=== PATIENT | male | born 1955 | race Caucasian/White ===

== ENCOUNTER 2017-02-12 09:53 | Emergency (ER) | payer BLACK LUNG, OTHER ==
[~2017-02-12 09:53] MED LIST: ASPIRIN81 MG PO; FISH OIL 1,0001 EAC1 PO; FISH OIL300 MG PO; LEVAQUIN500 MG PO; LIPITOR80 MG PO; MEDROL DOSEPAK 24 MG PO; MEDROL4 MG PO; METFORMIN HCL750 MG PO; PROVENTIL HFA 61 INH INH; SYNTHROID112 MCG PO; ZESTRIL10 MG PO
[2017-02-12 11:34] LABS: HEMOGLOBIN 14.6 gm/dl (14.0-17.5); RED BLOOD COUNT 5.21 M/UL (4.20-5.50); WHITE BLOOD COUNT 8.7 K/UL (4.5-11.0)
[2017-02-12 12:04] LABS: BUN/CREATININE RATIO 19 (0-10)
== END 2017-02-12 14:05 | disposition home or self-care (01) ==
LOC: ER1 09:53
PROVIDERS: Preventive Medicine Occupational Medicine
DX: J44.1 Chronic obstructive pulmonary disease with (acute) exacerbation (principal); I10 Essential (primary) hypertension
CPT/HCPCS: 36415; 36600; 71010; 80053; 81001; 82550; 82553; 82803; 83874; 83880; 84484; 85025; 87040; 93005; 94664; 96361; 96365; 96375; 99285; J0696; J2930; J7050

== ENCOUNTER → 2020-09-06 | Outpatient (CLI) | payer OTHER ==
[~2020-09-06] MED LIST changes: +ACID CONTROL150 MG PO; +ACIPHEX20 MG PO; +AMIODARONE HCL200 MG GT; +AMOX TR-K CLV1 EAC4 PO; +CEFUROXIME500 MG PO; +DALIRESP250 MCG PO; +ECOTRIN81 MG PO; +ELIQUIS 5 MG TAB5 MG PO; +FISH OIL-OMEGA1 EACH PO; +FLONASE 0.05% N16 GM; +GLUCOPHAGE XR750 MG PO; +IPRAT-ALBUT 0.5-3 ML INH; +LEVOFLOXACIN500 MG PO; +LEVOTHYROXINE100 MCG PO; +LOPRESSOR 25 MG25 MG PO; +MUCINEX600 MG PO; +OMNICEF 300 MG300 MG PO; +PREDNISONE 20 M20 MG PO; +PREDNISONE20 MG PO; +PRINIVIL10 MG PO; +PRINIVIL20 MG PO; +PROTONIX40 MG PO; +PROVENTIL HFA6.7 GM INH; +SINGULAIR10 MG PO; +STIOLTO RESPIMAT INH; +SYNTHROID75 MCG PO; +TAMIFLU75 MG PO; +TESSALON PERLE100 MG PO; +TRELEGY ELLIPT1 EACH INH; +VENTOLIN HFA 66.7 GM INH; +VIBRAMYCIN100 MG PO; +VITAMIN D31000 UNI1 PO; +VITAMIN D31000 UNIT PO; +XYZAL5 MG PO; +ZANTAC150 MG PO; +ZITHROMAX250 MG PO
== END ==
LOC: HEART 5 14:16
DX: R00.1 Bradycardia, unspecified (principal); R00.2 Palpitations

== ENCOUNTER 2021-02-12 22:06 | Emergency (ER) | payer OTHER, BLACK LUNG ==
[2021-02-12 22:51] LABS: HEMOGLOBIN 13.7 gm/dl (14.0-17.5); RED BLOOD COUNT 5.13 M/UL (4.20-5.50); WHITE BLOOD COUNT 12.4 K/UL (4.5-11.0)
[2021-02-12 23:22] LABS: BUN/CREATININE RATIO 18 (0-10)
[2021-02-12] MEDS ORDERED: PREDNISONE 20 M20 MG PO (23:45)
[2021-02-12] MEDS ORDERED: VIBRAMYCIN100 MG PO (23:47)
== END 2021-02-13 00:07 | disposition home or self-care (01) ==
LOC: ER1 22:06
PROVIDERS: Emergency Medicine
DX: J44.1 Chronic obstructive pulmonary disease with (acute) exacerbation (principal); J84.10 Pulmonary fibrosis, unspecified
CPT/HCPCS: 71045; 80053; 82550; 82553; 83874; 83880; 84484; 85025; 94664; 94760; 96374; 99285; J1100

== ENCOUNTER 2021-09-14 12:21 | Emergency (ER) | payer OTHER, BLACK LUNG ==
[2021-09-14 12:59] LABS: HEMOGLOBIN 14.6 gm/dl (14.0-17.5); RED BLOOD COUNT 5.15 M/UL (4.20-5.50); WHITE BLOOD COUNT 11.3 K/UL (4.5-11.0)
[2021-09-14 14:15] LABS: BUN/CREATININE RATIO 17 (0-10)
[2021-09-14] MEDS ORDERED: PREDNISONE20 MG PO (15:11)
[2021-09-14] MEDS ORDERED: DOXYCYCLINE HY100 MG PO (15:11)
== END 2021-09-14 15:02 | disposition home or self-care (01) ==
LOC: ER1 12:21
PROVIDERS: Emergency Medicine
DX: J44.9 Chronic obstructive pulmonary disease, unspecified (principal); Z20.822 Contact with and (suspected) exposure to COVID-19
CPT/HCPCS: 0240U; 71045; 80048; 83605; 85025; 87040; 93005; 94640; 94664; 96374; 99284; J2930

== ENCOUNTER 2021-09-26 17:04 | Emergency (ER) | payer OTHER, BLACK LUNG ==
[~2021-09-26 17:04] MED LIST changes: +DOXYCYCLINE HY100 MG PO
[2021-09-26 18:25] LABS: HEMOGLOBIN 14.9 gm/dl (14.0-17.5); RED BLOOD COUNT 5.24 M/UL (4.20-5.50); WHITE BLOOD COUNT 8.9 K/UL (4.5-11.0)
[2021-09-26 18:49] LABS: BUN/CREATININE RATIO 18 (0-10)
== END 2021-09-26 22:44 | disposition home or self-care (01) ==
LOC: ER1 17:04
PROVIDERS: Emergency Medicine
DX: J44.0 Chronic obstructive pulmonary disease with (acute) lower respiratory infection (principal); J44.1 Chronic obstructive pulmonary disease with (acute) exacerbation; J13 Pneumonia due to Streptococcus pneumoniae; I10 Essential (primary) hypertension; Z20.822 Contact with and (suspected) exposure to COVID-19
CPT/HCPCS: 36600; 71045; 80048; 82550; 82553; 82803; 83880; 84484; 85025; 87040; 93005; 94664; 96374; 99285; J1100; Q9967; U0002

== ENCOUNTER 2021-10-19 11:31 | Inpatient (IN) | payer BLACK LUNG, OTHER ==
[~2021-10-19] VITALS: Ht 175.3 cm; Wt 88.5 kg
[~2021-10-19 11:31] MED LIST changes: +DALIRESP500 MCG PO; +LISINOPRIL20 MG PO; -PRINIVIL10 MG PO; +SYNTHROID50 MCG PO; -SYNTHROID75 MCG PO
[2021-10-19 12:21] LABS: HEMOGLOBIN 13.8 gm/dl (14.0-17.5); RED BLOOD COUNT 5.09 M/UL (4.20-5.50); WHITE BLOOD COUNT 8.5 K/UL (4.5-11.0)
[2021-10-19 12:56] LABS: BUN/CREATININE RATIO 16 (0-10)
[2021-10-19] MEDS ORDERED: AUGMENTIN 875-1 EACH PO (16:59)
[2021-10-19] MEDS ORDERED: AMLODIPINE BESYL5 MG PO (17:00)
[2021-10-19] MEDS ORDERED: ACIPHEX20 MG PO (23:18)
[2021-10-20 03:11] LABS: HEMOGLOBIN 13.3 gm/dl (14.0-17.5); RED BLOOD COUNT 4.8 M/UL (4.20-5.50); WHITE BLOOD COUNT 8.1 K/UL (4.5-11.0)
[2021-10-20 03:33] LABS: BUN/CREATININE RATIO 17 (0-10)
[2021-10-21 06:55] LABS: HEMOGLOBIN 13.5 gm/dl (14.0-17.5); RED BLOOD COUNT 4.78 M/UL (4.20-5.50)
[2021-10-21 07:11] LABS: BUN/CREATININE RATIO 26 (0-10)
[2021-10-22 05:10] LABS: HEMOGLOBIN 12.5 gm/dl (14.0-17.5); RED BLOOD COUNT 4.56 M/UL (4.20-5.50); WHITE BLOOD COUNT 14.9 K/UL (4.5-11.0)
[2021-10-22 05:28] LABS: BUN/CREATININE RATIO 29 (0-10)
[2021-10-23 03:59] LABS: RED BLOOD COUNT 4.97 M/UL (4.20-5.50); WHITE BLOOD COUNT 13.6 K/UL (4.5-11.0)
[2021-10-23 04:17] LABS: BUN/CREATININE RATIO 31 (0-10)
[2021-10-23] MEDS ORDERED: MEDROL DOSEPAK 24 MG PO (13:33)
[2021-10-23] MEDS ORDERED: IPRAT-ALBUT 0.5-3 ML NEB (13:33)
[2021-10-23] MEDS ORDERED: SPIRIVA RESPIMAT4 GM INH (13:33)
[2021-10-23] MEDS ORDERED: BROVANA15 MCG/2 M NEB (13:33)
[2021-10-23] MEDS ORDERED: BUDESONIDE0.5 MG/2 M NEB (13:33)
[2021-10-23] MEDS ORDERED: LEVOFLOXACIN750 MG PO (13:33)
== END 2021-10-23 16:04 | disposition home or self-care (01) | DRG 193 ==
LOC: ER1 11:31 → CDU 14:26 → MED SURG 4 14:26
PROVIDERS: Physician Assistant; Physician Assistant Medical; ADMIT Internal Medicine
DX: J18.9 Pneumonia, unspecified organism (principal); J96.21 Acute and chronic respiratory failure with hypoxia; J44.1 Chronic obstructive pulmonary disease with (acute) exacerbation; J60 Coalworker's pneumoconiosis; Z20.822 Contact with and (suspected) exposure to COVID-19; K21.9 Gastro-esophageal reflux disease without esophagitis; E78.5 Hyperlipidemia, unspecified; E11.9 Type 2 diabetes mellitus without complications; I10 Essential (primary) hypertension; E03.9 Hypothyroidism, unspecified; J62.8 Pneumoconiosis due to other dust containing silica; I44.7 Left bundle-branch block, unspecified; I48.91 Unspecified atrial fibrillation; Z90.49 Acquired absence of other specified parts of digestive tract; Z87.891 Personal history of nicotine dependence; Z83.3 Family history of diabetes mellitus; Z83.6 Family history of other diseases of the respiratory system; Z88.8 Allergy status to other drugs, medicaments and biological substances; Z79.01 Long term (current) use of anticoagulants; Z79.82 Long term (current) use of aspirin; Z99.81 Dependence on supplemental oxygen
CPT/HCPCS: 0240U; 36415; 36600; 71045; 80048; 80053; 82550; 82553; 82803; 82962; 83036; 83605; 83735; 83874; 84484; 85025; 85027; 85379; 87040; 93005; 94640; 94664; 94760; 96374; 96375; 96376; 99285; G0378; J0456; J0696; J2920; J2930; J7030

== ENCOUNTER 2021-11-24 21:58 | Inpatient (IN) | payer BLACK LUNG, OTHER ==
[~2021-11-24] VITALS: Ht 175.3 cm; Wt 81.6 kg
[~2021-11-24 21:58] MED LIST changes: +AMLODIPINE BESYL5 MG PO; +AUGMENTIN 875-1 EACH PO; +BROVANA15 MCG/2 M NEB; +BUDESONIDE0.5 MG/2 M NEB; +IPRAT-ALBUT 0.5-3 ML NEB; +LEVOFLOXACIN750 MG PO; +SPIRIVA RESPIMAT4 GM INH
[2021-11-24 22:42] LABS: HEMOGLOBIN 13.1 gm/dl (14.0-17.5); RED BLOOD COUNT 4.73 M/UL (4.20-5.50); WHITE BLOOD COUNT 9.6 K/UL (4.5-11.0)
[2021-11-24 23:11] LABS: BUN/CREATININE RATIO 15 (0-10)
[2021-11-25] MEDS ORDERED: METFORMIN HCL750 MG PO (05:57)
[2021-11-25] MEDS ORDERED: DALIRESP250 MCG PO (05:58)
[2021-11-25] MEDS ORDERED: YUPELRI175 MCG/3 INH (06:01)
[2021-11-26 03:36] LABS: RED BLOOD COUNT 4.38 M/UL (4.20-5.50); WHITE BLOOD COUNT 10.2 K/UL (4.5-11.0)
[2021-11-26 03:59] LABS: BUN/CREATININE RATIO 18 (0-10)
[2021-11-27 06:09] LABS: HEMOGLOBIN 12.1 gm/dl (14.0-17.5); RED BLOOD COUNT 4.43 M/UL (4.20-5.50)
[2021-11-27 07:07] LABS: BUN/CREATININE RATIO 19 (0-10)
== END 2021-11-27 16:33 | disposition home or self-care (01) | DRG 193 ==
LOC: ER1 21:58 → CDU 11-25 04:28 → MED SURG 4 11-25 06:25
PROVIDERS: Internal Medicine; Student in an Organized Health Care Education/Training Program; ADMIT Internal Medicine
PROC: B24BZZZ Ultrasonography of Heart with Aorta (ICD-10-PCS; principal; 2021-11-26)
DX: J18.9 Pneumonia, unspecified organism (principal); I50.33 Acute on chronic diastolic (congestive) heart failure; J96.21 Acute and chronic respiratory failure with hypoxia; Z20.822 Contact with and (suspected) exposure to COVID-19; I50.23 Acute on chronic systolic (congestive) heart failure; B37.0 Candidal stomatitis; I47.1 Supraventricular tachycardia; I11.0 Hypertensive heart disease with heart failure; K21.9 Gastro-esophageal reflux disease without esophagitis; K40.90 Unilateral inguinal hernia, without obstruction or gangrene, not specified as recurrent; J43.9 Emphysema, unspecified; E11.9 Type 2 diabetes mellitus without complications; I44.7 Left bundle-branch block, unspecified; E03.9 Hypothyroidism, unspecified; I48.0 Paroxysmal atrial fibrillation; J60 Coalworker's pneumoconiosis; I08.3 Combined rheumatic disorders of mitral, aortic and tricuspid valves; I95.9 Hypotension, unspecified; Z99.81 Dependence on supplemental oxygen; Z79.01 Long term (current) use of anticoagulants; Z79.82 Long term (current) use of aspirin; Z86.711 Personal history of pulmonary embolism; Z90.49 Acquired absence of other specified parts of digestive tract; Z82.49 Family history of ischemic heart disease and other diseases of the circulatory system
CPT/HCPCS: ECHO; 36415; 36600; 71045; 80053; 80307; 82272; 82550; 82553; 82803; 82962; 83036; 83735; 83880; 84100; 84439; 84443; 84484; 85025; 85027; 87040; 87070; 87205; 93005; 93306; 94640; 94664; 94760; 96374; 96375; 99285; C9113; J0696; J1940; Q9967; U0002

== ENCOUNTER → 2022-01-01 | Outpatient (CLI) | payer OTHER ==
[~2022-01-01] MED LIST changes: +YUPELRI175 MCG/3 INH
== END ==
LOC: EXRD 10:30
DX: Z13.6 Encounter for screening for cardiovascular disorders (principal)
CPT/HCPCS: 76706

== ENCOUNTER → 2022-01-11 | Outpatient (CLI) | payer BLACK LUNG, OTHER | LOC: EXRD 15:37 | DX: J18.9 Pneumonia, unspecified organism (principal); R91.8 Other nonspecific abnormal finding of lung field | CPT/HCPCS: 71046 ==